=== PATIENT | female | born 1990 | race African-American/Black ===

== ENCOUNTER 2024-01-19 04:08 | Day surgery (SDC) | payer BC ==
[2024-01-18 15:51] VITALS: BMI 23.1
[2024-01-19 10:12] VITALS: RESP 16
[2024-01-19] MEDS ORDERED: ceFAZolin SODIUM 1 GM VIAL ONE (11:06)
[2024-01-19] MEDS: ceFAZolin SODIUM 1 GM VIAL IVPB ONE (11:08)
[2024-01-19] MEDS ORDERED: VASopressin 20 UNITS/ML VIAL IV ONE (12:51)
[2024-01-19] MEDS: LACTATED RINGERS SOLUTION 1,000 ML IV SCH (13:41)
[2024-01-19] MEDS ORDERED: ONDANSETRON 4 MG/2 ML VIAL IVPUSH PRN (13:53)
[2024-01-19] MEDS: INDOMETHACIN 50 MG CAPSULE PO ONE (14:24)
[2024-01-19 18:36] VITALS: BP 98/60; PULSE 77; TEMP 99.1
== END 2024-01-19 18:37 | disposition home or self-care (01) ==
LOC: JASU-SURG 04:08
PROVIDERS: ATTEND Obstetrics & Gynecology Maternal & Fetal Medicine
PROC: 0U5C7ZZ Destruction of Cervix, Via Natural or Artificial Opening (ICD-10-PCS; 2024-01-19)
PROC: 0UVC7ZZ Restriction of Cervix, Via Natural or Artificial Opening (ICD-10-PCS; principal; 2024-01-19 12:00)
DX: O34.31 Maternal care for cervical incompetence, first trimester (principal); O34.41 Maternal care for other abnormalities of cervix, first trimester; Z3A.12 12 weeks gestation of pregnancy
CPT/HCPCS: 88305-TC; 94760

== ENCOUNTER 2024-07-25 19:05 | Inpatient (IN) | payer BC ==
[2024-07-25 20:17] LABS: BASO % 0.4 % (0-2.0); EOS % 2.1 % (0-4.5); HEMATOCRIT 30.8 % (32.4-45.2); HEMOGLOBIN 10.2 GM/dL (10.7-15.3); LYMPH % 34.1 % (8-40); MCH 28.1 pg (25.7-33.7); MCHC 33.2 g/dl (32.0-36.0); MEAN CELL VOLUME 84.5 fl (80-96); MONO % 9.4 % (3.8-10.2); PLATELET COUNT 177 10^3/uL (134-434); RBC 3.64 M/mm3 (3.60-5.2); RDW 13.7 % (11.6-15.6); WHITE BLOOD COUNT 5.5 K/mm3 (4.0-10.0)
[2024-07-25 20:18] LABS: INR 0.95 (0.83-1.09); PROTHROMBIN TIME (PATIENT) 10.9 SEC (9.7-13.0)
[2024-07-25 20:22] VITALS: BMI 28.8
[2024-07-25 20:29] LABS: POTASSIUM 3.9 mmol/L (3.5-5.1)
[2024-07-25 20:31] LABS: ALBUMIN 2.7 g/dl (3.4-5.0); BLOOD UREA NITROGEN 9.4 mg/dL (7-18)
[2024-07-25 20:34] LABS: CREATININE 0.6 mg/dL (0.55-1.3)
[2024-07-25 20:36] LABS: BILIRUBIN,TOTAL 0.6 mg/dL (0.2-1)
[2024-07-25] MEDS: DEXTROSE 5%-LACTATED RINGERS 1,000 ML IV SCH (21:06)
[2024-07-25] MEDS: SODIUM CHLORIDE 500 ML IV STA (21:08)
[2024-07-25] MEDS: MISOPROSTOL 100 MCG TABLET PV SCH (22:10)
[2024-07-26] MEDS: SODIUM CHLORIDE 500 ML IV STA (04:00)
[2024-07-26] MEDS ORDERED: FENTANYL/BUPIVACAINE/NS/PF - PCEA - 50 ML DISP.SYRIN EP ONE ×3 (04:55→13:45)
[2024-07-26] MEDS ORDERED: NALOXONE HCL 0.4 MG/ML VIAL IVPUSH PRN (05:06)
[2024-07-26] MEDS: SODIUM CHLORIDE 1,000 ML IV STA (05:15)
[2024-07-26] MEDS: FENTANYL/BUPIVACAINE/NS/PF - PCEA - 50 ML DISP.SYRIN EP SCH (05:20)
[2024-07-26] MEDS: morphine SULFATE 4 MG/ML VIAL IVPB ONE (05:55)
[2024-07-26] MEDS ORDERED: OXYTOCIN 30 UNITS in 0.9% NS 30 UNIT/500 ML INFUS.BAG IVPB ONE (07:36)
[2024-07-26] MEDS: OXYTOCIN 30 UNITS in 0.9% NS 30 UNIT/500 ML INFUS.BAG IVPB SCH (07:47)
[2024-07-26] MEDS ORDERED: OXYTOCIN 20 UNITS in 0.9% NS 20 UNIT/1,000 ML INFUS.BAG IV ONE (14:19)
[2024-07-26] MEDS ORDERED: TERBUTALINE SULFATE 1 MG/1 ML VIAL SQ ONE (18:32)
[2024-07-26] MEDS: TERBUTALINE SULFATE 1 MG/1 ML VIAL SQ ONE (18:35)
[2024-07-26] MEDS ORDERED: ceFAZolin SODIUM 1 GM VIAL ONE (18:55)
[2024-07-26] MEDS ORDERED: morphine SULFATE/PF 1 MG/2 ML (2cc Syringe - QUVA) ONE (19:13)
[2024-07-26] MEDS ORDERED: OXYTOCIN 10 UNITS/ML VIAL ONE ×2 (19:49→20:05)
[2024-07-26] MEDS ORDERED: VASopressin 20 UNITS/ML VIAL IV ONE (20:03)
[2024-07-26 20:19] LABS: CORD BASE EXCESS -24.1 mmol/L (0-2); CORD HCO3 13.4 mmHg (20-29); CORD PCO2 95.4 mmHg (30-78)
[2024-07-26 20:21] LABS: CORD pH 6.767 (7.14-7.44)
[2024-07-26] MEDS ORDERED: IBUPROFEN 600 MG TABLET (FP) PO ONE (22:17)
[2024-07-26] MEDS: IBUPROFEN 600 MG TABLET (FP) PO PRN (22:20)
[2024-07-27] MEDS: ACETAMINOPHEN 325 MG TABLET (FP) PO PRN (00:16)
[2024-07-27] MEDS: OXYTOCIN 20 UNITS in 0.9% NS 20 UNIT/1,000 ML INFUS.BAG IV SCH (05:52)
[2024-07-27 08:14] LABS: BASO % 0.1 % (0-2.0); EOS % 0.2 % (0-4.5); HEMATOCRIT 29.3 % (32.4-45.2); HEMOGLOBIN 9.6 GM/dL (10.7-15.3); LYMPH % 10.7 % (8-40); MCH 27.9 pg (25.7-33.7); MCHC 32.7 g/dl (32.0-36.0); MEAN CELL VOLUME 85.3 fl (80-96); MEAN PLT VOLUME 9.3 fl (7.5-11.1); MONO % 6.8 % (3.8-10.2); NEUT % 82.2 % (42.8-82.8); PLATELET COUNT 163 10^3/uL (134-434); RBC 3.43 M/mm3 (3.60-5.2); RDW 14.1 % (11.6-15.6); WHITE BLOOD COUNT 10.9 K/mm3 (4.0-10.0)
[2024-07-27] MEDS: oxyCODONE HCL 5 MG TABLET PO PRN (13:07)
[2024-07-27] MEDS: FERROUS SO4 325 MG TABLET (FP) PO SCH (13:56)
[2024-07-27 23:01] VITALS: RESP 18
[2024-07-28] MEDS: DOCUSATE SODIUM 100 MG CAPSULE (FP) PO PRN (20:40)
[2024-07-29 07:39] LABS: BASO % 0.3 % (0-2.0); HEMATOCRIT 23.9 % (32.4-45.2); HEMOGLOBIN 7.9 GM/dL (10.7-15.3); LYMPH % 25.3 % (8-40); MCH 27.9 pg (25.7-33.7); MEAN CELL VOLUME 84.6 fl (80-96); MEAN PLT VOLUME 8.8 fl (7.5-11.1); MONO % 4.6 % (3.8-10.2); NEUT % 67.8 % (42.8-82.8); PLATELET COUNT 174 10^3/uL (134-434); RBC 2.82 M/mm3 (3.60-5.2); RDW 14.2 % (11.6-15.6); WHITE BLOOD COUNT 6.5 K/mm3 (4.0-10.0)
[2024-07-29 08:47] VITALS: BP 104/69; PULSE 88; TEMP 98
== END 2024-07-29 11:23 | disposition home or self-care (01) | DRG 786 ==
LOC: JLDR 19:05 → J3W 07-26 23:19
PROVIDERS: ADMIT Obstetrics & Gynecology Maternal & Fetal Medicine; ATTEND Obstetrics & Gynecology Maternal & Fetal Medicine
PROC: 10D00Z1 Extraction of Products of Conception, Low, Open Approach (ICD-10-PCS; principal; 2024-07-26)
DX: O62.1 Secondary uterine inertia (principal); O34.33 Maternal care for cervical incompetence, third trimester; Z3A.39 39 weeks gestation of pregnancy; Z37.0 Single live birth
CPT/HCPCS: 36415; 36600; 74018-TC-FY; 80053; 82803; 85025; 85610; 85730; 86780; 86850; 86900; 86901; 88307-TC